=== PATIENT | female | born 1995 | race Caucasian/White ===

== ENCOUNTER → 2017-08-13 | Outpatient (CLI) | payer MEDICAID ==
[~2017-08-13] MED LIST: DIVA125T2 PO; LRT10T PO; METH20CP PO; NAPR-243 PO
--- NOTE | 2017-08-13 17:38 | Diagnostic Imaging Report ---
INDICATION: Right lateral foot pain. FINDINGS: Three views of the right foot show no fracture, dislocation or other acute abnormalities. IMPRESSION: Negative right foot. Dictated by: Dictated on workstation # [id number]
== END ==
LOC: RAD 17:00
PROVIDERS: ATTEND Family Medicine
DX: M77.40 Metatarsalgia, unspecified foot (principal); W19.XXXA Unspecified fall, initial encounter
CPT/HCPCS: 73630

== ENCOUNTER → 2018-10-03 | Outpatient (CLI) | payer MEDICAID | LOC: LAB 10:20 | PROVIDERS: ATTEND Family Medicine | DX: B35.3 Tinea pedis (principal) | CPT/HCPCS: 87220 ==

== ENCOUNTER → 2018-10-09 | Outpatient (CLI) | payer MEDICAID ==
[2018-10-09 16:35] LABS: ALANINE AMINOTRANSFERASE 15 U/L (0-55); ALBUMIN 4.2 GM/DL (3.2-4.5); ALKALINE PHOSPHATASE 83 U/L (40-136); BILIRUBIN,DIRECT < 0.1 MG/DL (0.0-0.3); BILIRUBIN,INDIRECT 0.1 MG/DL; BILIRUBIN,TOTAL 0.2 MG/DL (0.1-1.0); TOTAL PROTEIN 7.2 GM/DL (6.4-8.2)
== END ==
LOC: LAB 15:56
PROVIDERS: ATTEND Family Medicine
DX: B35.3 Tinea pedis (principal)
CPT/HCPCS: 36415; 80076

== ENCOUNTER 2018-10-29 06:43 | Outpatient (CLI) | payer MEDICAID ==
[~2018-10-29] VITALS: Ht 172.7 cm; Wt 97.5 kg
[2018-10-29] MEDS ORDERED: TERB250T16 PO (16:17)
[2018-10-29] MEDS ORDERED: METH-288 PO (16:17)
[2018-10-29] MEDS ORDERED: DIVA-74 PO (16:17)
[2018-10-29] MEDS ORDERED: LORA10TA7 PO (16:17)
[2018-10-29] MEDS ORDERED: PANT40TA2 PO (16:17)
== END 2018-10-29 16:25 | disposition home or self-care (01) ==
LOC: PREOP 06:43
PROVIDERS: ATTEND Dentist General Practice
DX: Z01.818 Encounter for other preprocedural examination (principal)

== ENCOUNTER 2018-11-04 10:51 | Day surgery (SDC) | payer MEDICAID ==
[~2018-11-04] VITALS: Ht 172.7 cm; Wt 97.5 kg
[2018-11-04] VITALS (8 sets, daily range): BP systolic 116–129; BP diastolic 64–89
[~2018-11-04 10:51] MED LIST changes: +DIVA-74 PO; +LORA10TA7 PO; +METH-288 PO; +PANT40TA2 PO; +TERB250T16 PO
[2018-11-04] MEDS ORDERED: CATHETER FLUSH 10 ML SYR IV PRN (11:15)
[2018-11-04] MEDS: LACTATED RINGERS 1,000 ML IV PRN ×2 (11:40→13:34)
[2018-11-04] MEDS ORDERED: SEVOFLURANE (ULTANE) 15 ML INHAL SOLN ONE ×4 (11:54→12:52)
[2018-11-04] MEDS ORDERED: proPOfol 200 MG/20 ML (DIPRIVAN) VIAL IV ONE (11:54)
[2018-11-04] MEDS ORDERED: ONDANSETRON 4 MG/2 ML (SDV) Z0FRAN ONE (11:54)
[2018-11-04] MEDS ORDERED: DEXAMETHASONE 10 MG/ML (DECADRON) 1 ML VIAL ONE (11:54)
[2018-11-04] MEDS ORDERED: ROCURONIUM 10 MG/ML 5 ML SYRINGE IV ONE (11:54)
[2018-11-04] MEDS ORDERED: LIDOCAINE PF 2% 5 ML (XYLOCAINE) VIAL ONE (11:54)
[2018-11-04] MEDS ORDERED: MIDAZOLAM 2 MG/2 ML (VERSED) VIAL ONE (11:54)
[2018-11-04] MEDS ORDERED: fentaNYL INJECTION 100 MCG/2 ML AMP ONE ×2 (11:55→13:56)
[2018-11-04] MEDS ORDERED: LIDOCAINE JELLY 2% 6 ML SYRINGE ONE (12:04)
--- NOTE | 2018-11-04 12:31 | Progress Note-Pre Operative ---
Pre-Operative Progress Note H&P Reviewed The H&P was reviewed, patient examined and no changes noted. Date Seen by Provider: Nov 04, 2018 Time Seen by Provider: 12:30 Date H&P Reviewed: Nov 04, 2018 Time H&P Reviewed: 12:31 Pre-Operative Diagnosis: dental caries FRANCE PEACOCK DDS Nov 04, 2018 12:31
[2018-11-04] MEDS ORDERED: PHENYLEPHRINE 0.25% NASAL SPR (NEO-SYNEPHRINE) 15 ML NS ONE ×2 (12:34→13:00)
[2018-11-04] MEDS ORDERED: APAP 325 MG/10.15 ML LIQ (TYLENOL) UDC PO PRN (12:45)
[2018-11-04] MEDS ORDERED: GLYCOPYRROLATE 0.2 MG/ML (ROBINUL) 2 ML VIAL ONE (12:52)
[2018-11-04] MEDS ORDERED: NEOSTIGMINE 1 MG/ML 5 ML SYRINGE ONE (12:52)
[2018-11-04] MEDS ORDERED: ONDANSETRON 4 MG/2 ML (SDV) Z0FRAN IVP PRN (14:15)
[2018-11-04] MEDS ORDERED: HYDROmorphone 2 MG/ML VIAL (DILAUDID) IV ONE (14:15)
--- NOTE | 2018-11-04 14:48 | Anesthesia-General Post-Op ---
General Patient Condition Mental Status/LOC: Same as Preop Cardiovascular: Satisfactory Nausea/Vomiting: Absent Respiratory: Satisfactory Pain: Controlled Complications: Absent Post Op Complications Complications None Follow Up Care/Instructions Patient Instructions None needed. Anesthesia/Patient Condition Patient Condition Patient is doing well, no complaints, stable vital signs, no apparent adverse anesthesia problems. BLAINE BENJAMIN DO Nov 04, 2018 14:48
--- NOTE | 2018-11-04 15:30 | NUR ---
ALERT, TAKING PO FLUIDS WITHOUT PROBLEM. NO BLEEDING FROM MOUTH OR NOSE. DENIES PAIN.
--- NOTE | 2018-11-05 08:40 | OPERATIVE REPORT ---
DATE OF SERVICE: 11/04/2018 PREOPERATIVE DIAGNOSIS: Dental caries. POSTOPERATIVE DIAGNOSIS: Dental caries. OPERATION PERFORMED: Repair of numerous carious teeth utilizing composite resin and extraction. DESCRIPTION OF PROCEDURE: The patient was treated on an outpatient basis on following suitable premedication. Taken to the operating room and placed in the supine position upon the table. Anesthesia was induced. General anesthesia was administered. A throat pack consisting of one wet 4 x 4 gauze sponge was placed in the oropharynx and maintained in place throughout the procedure. Mouth opening was maintained at all time with simple digital pressure. No mechanical retractors of any kind were utilized. Caries was removed from teeth numbers 2, 4, 8, 9, 10, 11, 13, 15, 18, 21 and 29 and subsequently repaired with composite resin. Tooth #31 was then extracted. The patient tolerated this procedure quite nicely. Following a thorough debridement of the oral cavity with a copious flow of water, adequate suction and compressed air, the throat pack was removed. The patient was extubated and taken to recovery in quite satisfactory condition. Job ID: [id number] DocumentID: [id number] Dictated Date: 11/05/2018 08:04:15 Ethanol Operations Manager Date: 11/05/2018 08:40:15 Dictated By: FRANCE PEACOCK DDS
--- NOTE | 2018-11-06 13:17 | HISTORY AND PHYSICAL ---
DATE OF SERVICE: Outpatient surgery by Dr. Aguilar. CHIEF COMPLAINT: History by patient and mother. Teeth surgery by Dr. Aguilar. ALLERGIC TO MEDICATIONS: KEFLEX. MEDICATIONS: Now on Ritalin, Claritin, and Depakote. PREVIOUS SURGERIES: Denies. FAMILY HISTORY: Heart disease in family. Denies asthma, TB lung disease, cancer. Admit to diabetes in family. REVIEW OF SYSTEMS: HEAD: Denies headache, dizziness, fainting. EYES, EARS, NOSE AND THROAT: Denies diplopia, tinnitus or sore throat. RESPIRATORY: Denies asthma, TB, coughing, congestion, wheezing. HEART: No history of heart problems or chest pain. GASTROINTESTINAL: Appetite good. Denies blood in stools, diarrhea, constipation, ulcer, vomiting. GENITOURINARY: Denies blood, pain, frequency. Less menstrual period monthly. PHYSICAL EXAMINATION: GENERAL: The patient is a white female, well nourished, well developed, in no acute respiratory distress at rest. VITAL SIGNS: Weight 215, pulse 76, blood pressure 120/90. EARS: No discharge. EYES: No conjunctivitis or icterus. Throat not inflamed. NECK: Thyroid nonenlarged. No abnormal cervical lymphadenopathy noted. No carotid bruits. HEART: Regular rate and rhythm. LUNGS: Clear to auscultation. ABDOMEN: Soft. Liver and spleen nonpalpable. The patient is okay to have surgery. We will be on standby if he has any problems. Job ID: [id number] DocumentID: [id number] Dictated Date: 10/28/2018 11:30:51 [employer] Grounds Superintendent Date: 10/28/2018 12:07:13 Dictated By: BRANDI PINO DO
== END 2018-11-04 15:30 | disposition home or self-care (01) ==
LOC: SDC 10:51
PROVIDERS: ATTEND Dentist General Practice
DX: K02.9 Dental caries, unspecified (principal); F31.9 Bipolar disorder, unspecified; K21.9 Gastro-esophageal reflux disease without esophagitis; E66.9 Obesity, unspecified; Z68.32 Body mass index [BMI] 32.0-32.9, adult; Z79.899 Other long term (current) drug therapy
CPT/HCPCS: 36415; 84703; 87081

== ENCOUNTER → 2019-06-25 | Outpatient (CLI) | payer MEDICAID ==
[2019-06-25 16:55] LABS: BASOPHILS % (AUTO) 0 % (0-10); EOSINOPHILS % (AUTO) 0 % (0-10); HEMATOCRIT 46 % (35-52); HEMOGLOBIN 14.8 G/DL (11.5-16.0); LYMPHOCYTES # (AUTO) 3.1 X 10^3 (1.0-4.0); LYMPHOCYTES % (AUTO) 28 % (12-44); MEAN CORPUSCULAR HEMOGLOBIN 30 PG (25-34); MEAN CORPUSCULAR HGB CONC 32 G/DL (32-36); MEAN CORPUSCULAR VOLUME 94 FL (80-99); MONOCYTES # (AUTO) 0.7 X 10^3 (0.0-1.0); MONOCYTES % (AUTO) 6 % (0-12); NEUTROPHILS # (AUTO) 7.2 X 10^3 (1.8-7.8); NEUTROPHILS % (AUTO) 65 % (42-75); PLATELET COUNT 215 10^3/uL (130-400); RED CELL DISTRIBUTION WIDTH 13.8 % (10.0-14.5); WHITE BLOOD COUNT 11.1 10^3/uL (4.3-11.0)
[2019-06-25 17:17] LABS: ALANINE AMINOTRANSFERASE 15 U/L (0-55); ALBUMIN 4.7 GM/DL (3.2-4.5); ALKALINE PHOSPHATASE 68 U/L (40-136); BILIRUBIN,TOTAL 0.3 MG/DL (0.1-1.0); BUN/CREATININE RATIO 12; CALCIUM 9.5 MG/DL (8.5-10.1); CARBON DIOXIDE 25 MMOL/L (21-32); CHLORIDE 107 MMOL/L (98-107); CREATININE SERUM 0.92 MG/DL (0.60-1.30); GFR ESTIMATED > 60; GLUCOSE 97 MG/DL (70-105); SODIUM 142 MMOL/L (135-145); TOTAL PROTEIN 7.7 GM/DL (6.4-8.2)
== END ==
LOC: LAB 16:44
PROVIDERS: ATTEND Family Medicine
DX: F90.9 Attention-deficit hyperactivity disorder, unspecified type (principal)
CPT/HCPCS: 36415; 80053; 84443; 85025

== ENCOUNTER 2020-12-06 05:41 | Outpatient (RCR) | payer MEDICAID | END 2021-03-06 | disposition home or self-care (01) | LOC: PREOP 05:41 | PROVIDERS: ATTEND Dentist General Practice | DX: Z01.818 Encounter for other preprocedural examination (principal) ==

== ENCOUNTER → 2021-08-11 | Outpatient (CLI) | payer MEDICAID ==
[~2021-08-11] MED LIST changes: -TERB250T16 PO; +TERB250T88 PO
[2021-08-11 12:13] LABS: BASOPHILS # (AUTO) 0.1 10^3/uL (0.0-0.1); BASOPHILS % (AUTO) 1 % (0-10); EOSINOPHILS # (AUTO) 0.1 10^3/uL (0.0-0.3); EOSINOPHILS % (AUTO) 1 % (0-10); HEMATOCRIT 41 % (35-52); HEMOGLOBIN 12.8 g/dL (11.5-16.0); LYMPHOCYTES # (AUTO) 3.2 10^3/uL (1.0-4.0); LYMPHOCYTES % (AUTO) 31 % (12-44); MEAN CORPUSCULAR HEMOGLOBIN 30 pg (25-34); MEAN CORPUSCULAR HGB CONC 31 g/dL (32-36); MEAN CORPUSCULAR VOLUME 95 fL (80-99); MEAN PLATELET VOLUME 11.5 fL (9.0-12.2); MONOCYTES # (AUTO) 0.6 10^3/uL (0.0-1.0); MONOCYTES % (AUTO) 6 % (0-12); NEUTROPHILS # (AUTO) 6.4 10^3/uL (1.8-7.8); NEUTROPHILS % (AUTO) 61 % (42-75); PLATELET COUNT 302 10^3/uL (130-400); WHITE BLOOD COUNT 10.5 10^3/uL (4.3-11.0)
[2021-08-11 12:25] LABS: ALBUMIN 4.4 GM/DL (3.2-4.5); POTASSIUM 4.1 MMOL/L (3.6-5.0)
[2021-08-11 12:26] LABS: CALCIUM 9.6 MG/DL (8.5-10.1)
[2021-08-11 12:27] LABS: TOTAL PROTEIN 7.9 GM/DL (6.4-8.2)
[2021-08-11 12:29] LABS: BILIRUBIN,TOTAL 0.2 MG/DL (0.1-1.0)
[2021-08-11 12:31] LABS: CREATININE SERUM 0.81 MG/DL (0.60-1.30)
--- NOTE | 2021-08-11 13:06 | Diagnostic Imaging Report ---
INDICATION: Cough for one week. TIME OF EXAM: 12:20 p.m. COMPARISON: No prior studies are available for comparison. FINDINGS: Heart size is normal. Lungs are clear. The pulmonary vascularity is normal. No infiltrates are detected. There is no effusion or pneumothorax. IMPRESSION: No acute cardiopulmonary process is detected. Dictated by: Dictated on workstation # [id number]
== END ==
LOC: RAD 11:36
PROVIDERS: ATTEND Family Medicine
DX: R05.9 Cough, unspecified (principal)
CPT/HCPCS: 36415; 71046; 80053; 85025